=== PATIENT | male | born 1960 | race African-American/Black ===

== ENCOUNTER 2020-12-15 20:35 | Inpatient (IN) | payer MEDICARE, MEDICAID ==
[~2020-12-15] VITALS: Ht 170.2 cm; Wt 72.6 kg
[2020-12-15] MEDS ORDERED: NITROGLYCERIN 0.4MG TABLET SL SL PRN (21:15)
[2020-12-15 21:27] LABS: BASOPHILS % 0.7 % (0.0-2.0); EOSINOPHILS % 3.3 % (0.0-5.0); HEMATOCRIT. 43.1 % (42.0-52.0); HEMOGLOBIN. 14.6 g/dL (14.0-18.0); LYMPHOCYTES % 26.6 % (20.0-50.0); MEAN CORPUSCULAR HEMOGLOBIN 31.4 pg (28.0-32.0); MEAN CORPUSCULAR VOLUME 92.4 fL (80.0-94.0); MEAN PLATELET VOLUME 7.4 fl (7.4-10.4); MONOCYTES % 8.1 % (2.0-8.0); NEUTROPHILS % 61.3 % (40.0-76.0); PLATELET 250 x1000/uL (130-400); RED BLOOD CELL COUNT 4.67 mill/uL (4.7-6.1); RED CELL DISTRIBUTION WIDTH 14.6 % (11.6-14.6)
[2020-12-15 21:29] LABS: CHLORIDE 107 mEq/L (98-107)
[2020-12-15 21:34] LABS: D-DIMER 0.44 mg/L FEU (<0.50); PARTIAL THROMBOPLASTIN TIME 28.5 sec (23.4-31.0); PROTHROMBIN TIME 10.3 sec (9.6-11.0)
[2020-12-15] MEDS ORDERED: ASPIRIN 325MG EC TABLET PO ONE (23:00)
[2020-12-16] MEDS ORDERED: MORPHINE SULFATE 2 MG/ML CPJ (NOT FOR IM USE) IV PRN ×2 (01:45→20:30)
[2020-12-16] MEDS: CLONIDINE 0.1MG TABLET PO PRN ×3 (02:13→18:45)
[2020-12-16 09:01] LABS: LDL CHOLESTEROL 147 mg/dL (5-100)
[2020-12-16 09:02] LABS: HDL CHOLESTEROL 60 mg/dL (40-59)
[2020-12-16] MEDS: ENOXAPARIN 40MG/0.4ML SYR SUBCUT SCH (09:10)
[2020-12-16] MEDS: ASPIRIN 81MG TABLET PO SCH (09:10)
[2020-12-16 10:03] LABS: T4 FREE 0.91 ng/dL (0.76-1.46)
[2020-12-16 14:47] LABS: CREATINE KINASE MB FRACTION 2.4 ng/mL (0.5-3.6)
[2020-12-16 16:42] LABS: *AMPHETAMINES SCREEN URINE NEGATIVE (NEGATIVE); *BARBITURATES SCREEN URINE NEGATIVE (NEGATIVE); *BENZODIAZEPINES SCREEN URINE NEGATIVE (NEGATIVE); *COCAINE SCREEN URINE PRESUMTIVE POSITIVE (NEGATIVE)
[2020-12-16 16:43] LABS: CANNABINOID URINE SCREEN PRESUMTIVE POSITIVE (NEGATIVE); METHADONE URINE SCREEN NEGATIVE (NEGATIVE); OPIATES URINE SCREEN PRESUMTIVE POSITIVE (NEGATIVE); PHENCYCLIDINE URINE SCREEN NEGATIVE (NEGATIVE)
[2020-12-16] MEDS: HYDROCODONE/ACETAMINOPHEN 5/325MG TABLET PO PRN ×2 (20:56→22:24)
[2020-12-16] MEDS ORDERED: ATORVASTATIN CALCIUM 40MG TABLET PO SCH (21:00)
[2020-12-17] MEDS: HYDROCODONE/ACETAMINOPHEN 5/325MG TABLET PO PRN ×2 (00:12→13:39)
[2020-12-17 03:00] VITALS: BP 169/103
[2020-12-17] MEDS: CLONIDINE 0.1MG TABLET PO PRN ×2 (03:43→15:45)
[2020-12-17 04:12] VITALS: BP 169/103
[2020-12-17] MEDS ORDERED: TRIA1TAB92 MT (04:41)
[2020-12-17 08:00] VITALS: BP 156/83
[2020-12-17 08:45] LABS: BASOPHILS % 0.9 % (0.0-2.0); EOSINOPHILS % 4.9 % (0.0-5.0); HEMATOCRIT. 44.8 % (42.0-52.0); HEMOGLOBIN. 15.2 g/dL (14.0-18.0); LYMPHOCYTES % 31.8 % (20.0-50.0); MEAN CORPUSCULAR HEMOGLOBIN 31.4 pg (28.0-32.0); MEAN CORPUSCULAR VOLUME 92.7 fL (80.0-94.0); MEAN PLATELET VOLUME 7.3 fl (7.4-10.4); MONOCYTES % 9.5 % (2.0-8.0); NEUTROPHILS % 52.9 % (40.0-76.0); PLATELET 251 x1000/uL (130-400); RED BLOOD CELL COUNT 4.83 mill/uL (4.7-6.1); RED CELL DISTRIBUTION WIDTH 14.1 % (11.6-14.6)
[2020-12-17] MEDS ORDERED: AMLODIPINE 10MG TABLET PO SCH (09:00)
[2020-12-17 09:13] LABS: CHLORIDE 103 mEq/L (98-107)
[2020-12-17 09:24] LABS: CREATINE KINASE 185 IU/L (39-308)
[2020-12-17 09:30] LABS: CREATINE KINASE MB FRACTION 2.6 ng/mL (0.5-3.6)
[2020-12-17] MEDS: ASPIRIN 81MG TABLET PO SCH (09:30)
[2020-12-17] MEDS: ENOXAPARIN 40MG/0.4ML SYR SUBCUT SCH (09:31)
[2020-12-17 12:00] VITALS: BP 155/93
[2020-12-17] MEDS ORDERED: HYDRALAZINE HCL 50MG TABLET PO SCH (13:00)
[2020-12-17 16:00] VITALS: BP 143/92
[2020-12-18] MEDS ORDERED: CLOPIDOGREL 75MG TABLET PO SCH (09:00)
== END 2020-12-17 18:30 | disposition left against medical advice (07) | DRG 917 ==
LOC: ER 20:35 → MICUSO 23:47 → 8WST 12-17 02:07
PROVIDERS: ADMIT Internal Medicine; ATTEND Internal Medicine
DX: T40.5X1A Poisoning by cocaine, accidental (unintentional), initial encounter (principal); I63.9 Cerebral infarction, unspecified; N17.0 Acute kidney failure with tubular necrosis; G81.94 Hemiplegia, unspecified affecting left nondominant side; R41.4 Neurologic neglect syndrome; T40.7X1A Poisoning by cannabis (derivatives), accidental (unintentional), initial encounter; E78.5 Hyperlipidemia, unspecified; F17.210 Nicotine dependence, cigarettes, uncomplicated; I10 Essential (primary) hypertension; F12.10 Cannabis abuse, uncomplicated; E78.00 Pure hypercholesterolemia, unspecified; F14.10 Cocaine abuse, uncomplicated; R26.89 Other abnormalities of gait and mobility; Z79.899 Other long term (current) drug therapy; Z79.82 Long term (current) use of aspirin; Z71.6 Tobacco abuse counseling; Z71.51 Drug abuse counseling and surveillance of drug abuser; Y92.89 Other specified places as the place of occurrence of the external cause
CPT/HCPCS: 36415; 70551; 71045; 80048; 80053; 80061; 80305; 82550; 82553; 83036; 83880; 84439; 84443; 84484; 85025; 85379; 93005; 93306; 93880; 96372; 96374; 97162; 99285; 99406; J1650; J2270

== ENCOUNTER 2021-11-27 01:16 | Emergency (ER) | payer MEDICARE, MEDICAID ==
[~2021-11-27] VITALS: Ht 170.2 cm; Wt 73.0 kg
[~2021-11-27 01:16] MED LIST: TRIA1TAB92 MT
[2021-11-27] MEDS ORDERED: TAMS-11 MT (02:41)
[2021-11-27] MEDS ORDERED: LEVO500T89 MT (02:41)
[2021-11-27 02:50] VITALS: BP 126/75
[2021-11-27 03:19] LABS: CLARITY URINE CLEAR (CLEAR); COLOR URINE YELLOW (YELLOW); KETONES URINE NEGATIVE (NEGATIVE); LEUKOCYTE ESTERASE URINE NEGATIVE (NEGATIVE); NITRITE URINE NEGATIVE (NEGATIVE); OCCULT BLOOD URINE NEGATIVE (NEGATIVE); PH URINE 5.5 (4.5-8.0); PROTEIN URINE 2+ (NEGATIVE); SPECIFIC GRAVITY URINE 1.011 (1.005-1.030); UROBILINOGEN URINE 0.2 E.U./dL (0.2-1.0)
== END 2021-11-27 02:50 | disposition home or self-care (01) ==
LOC: ER 01:16
DX: N40.1 Benign prostatic hyperplasia with lower urinary tract symptoms (principal); R33.8 Other retention of urine
CPT/HCPCS: 81003; 99283; A4315

== ENCOUNTER 2021-11-29 19:37 | Emergency (ER) | payer MEDICARE, MEDICAID ==
[~2021-11-29] VITALS: Ht 170.2 cm; Wt 72.0 kg
[~2021-11-29 19:37] MED LIST changes: +LEVO500T89 MT; +TAMS-11 MT
[2021-11-29 22:56] LABS: CLARITY URINE CLOUDY (CLEAR); COLOR URINE YELLOW (YELLOW); KETONES URINE NEGATIVE (NEGATIVE); LEUKOCYTE ESTERASE URINE 2+ (NEGATIVE); NITRITE URINE NEGATIVE (NEGATIVE); OCCULT BLOOD URINE 3+ (NEGATIVE); PROTEIN URINE 2+ (NEGATIVE); SPECIFIC GRAVITY URINE 1.027 (1.005-1.030); UROBILINOGEN URINE 0.2 E.U./dL (0.2-1.0)
[2021-11-30 00:13] VITALS: BP 124/84
[2021-12-02] MEDS ORDERED: SULF1TAB48 MT (15:53)
== END 2021-11-30 00:13 | disposition home or self-care (01) ==
LOC: ER 19:37
DX: N39.0 Urinary tract infection, site not specified (principal); N40.0 Benign prostatic hyperplasia without lower urinary tract symptoms; Z86.73 Personal history of transient ischemic attack (TIA), and cerebral infarction without residual deficits; F14.10 Cocaine abuse, uncomplicated
CPT/HCPCS: 81003; 87077; 87186; 99283